=== PATIENT | male | born 2000 ===

== ENCOUNTER 2019-06-10 02:17 | Emergency (ER) | payer SELFPAY ==
[2019-06-10 02:34] VITALS: BP 164/97
[2019-06-10] MEDS ORDERED: methylPREDNISolone SOD SUCC 125 MG/2 ML VIAL IM ONE (02:35)
[2019-06-10] MEDS ORDERED: Lidocaine 1% 5ml 10 MG/ML VIAL IM ONE (02:35)
[2019-06-10] MEDS ORDERED: cefTRIAXone SODIUM 1 GM in Lidocaine 1% 5ml 2.1 ML IM ONE (02:35)
--- NOTE | 2019-06-10 02:35 | ED Physician Documentation ---
Sore Throat/Dental Pain - HISTORIAN Historian: patient - HPI Stated Complaint: sore throat Chief Complaint: Sore Throat Additional Information: Patient presents to ED with a 7 day history of sore throat. Onset: days ago (7) Associated Symptoms: sore throat, swollen glands. denies: fever Worsened By: nothing - ROS CONST: eye redness CVS/RESP: denies: shortness of breath GI/: denies: nausea, vomiting MS/SKIN/LYMPH: denies: muscle aches NEURO/PSYCH: denies: headache - PAST HX Past History: none Other History: none Allergies/Adverse Reactions: Allergies Allergy/AdvReac Type Severity Reaction Status Date / Time No Known Allergies Allergy Verified 06/10/19 02:34 Home Medications: Ambulatory Orders Medication Instructions Recorded Amoxicillin/Potassium Clav 1 each PO Q12 #28 tablet 06/10/19 [Augmentin 875Mg/125Mg] Methylprednisolone [Medrol] 4 mg PO DIRECTED #1 tab.ds.pk 06/10/19 - SOCIAL HX Smoking History: non-smoker Alcohol Use: none Drug Use: none - FAMILY HX Family History: No - VITAL SIGNS Vital Signs: Vital Signs Temp Pulse Resp BP Pulse Ox 99.1 F 89 18 164/97 99 06/10/19 02:19 06/10/19 02:19 06/10/19 02:19 06/10/19 02:19 06/10/19 02:19 - REVIEWED ASSESSMENTS Nursing Assessment Reviewed: Yes Vitals Reviewed: Yes ED Results Lab/Radiology - Orders Orders: ED Orders Category Date Time Status Lidocaine 1% 5ml [Xylocaine] Med 06/10/19 02:35 Discontinued 50 mg IM NOW ONE cefTRIAXone SODIUM [Rocephin] 1 gm Med 06/10/19 02:35 Discontinued Lidocaine 1% 5ml [Xylocaine] 2.1 ml IM NOW methylPREDNISolone SOD SUCC [SOLU-Medrol] Med 06/10/19 02:35 Discontinued 125 mg IM NOW ONE Sore throat Physical Exam - EXAM General Appearance: no acute distress, alert Head/Neck: trachea midline, cervical lymphadenopathy, anterior (left) Eyes: PERRL Mouth/Throat: lips nml, pharyngeal erythema, tonsillar swelling (left > right), uvular shift. No: tonsillar exudate, muffled voice Ear/Nose: nml inspection Respiratory: no resp. distress, breath sounds nml. No: respiratory distress, stridor CVS: reg. rate & rhythm, heart sounds nml Abdomen: soft, normal bowel sounds, non-tender Extremities: non-tender Skin: warm/dry, normal color Neuro/Psych: oriented x3, mood/affect nml Discharge Clincal Impression: Pharyngitis Qualifiers: Pharyngitis/tonsillitis etiology: unspecified etiology Qualified Code(s): J02.9 - Acute pharyngitis, unspecified Additional Instructions: 1. Start antibiotics and medrol dose pack tomorrow 2. Tylenol 650mg every 4 hours as needed for pain 3. Follow up with PCP within 2 days to re-evaluate swelling in left tonsil. Discuss possible referral to ENT if no improvement in symptoms 4. Return to the ER immediately (call 911) for increased swelling, difficulty swallowing or difficulty breathing. Condition: Stable Disposition: 01 HOME, SELF-CARE Decision to Admit: NO Date of Decison to Admit: 06/10/19 Decision Time: 02:55
== END 2019-06-10 03:09 | disposition home or self-care (01) ==
LOC: ED 02:17
DX: J02.9 Acute pharyngitis, unspecified (principal)
CPT/HCPCS: 87070; 87880; 96372; 99283; J0696; J2930